=== PATIENT | male | born 1975 | race Caucasian/White ===

== ENCOUNTER 2017-09-08 10:46 | Emergency (ER) | payer OTHER ==
[~2017-09-08] VITALS: Ht 172.7 cm; Wt 74.8 kg
--- NOTE | 2017-09-08 10:55 | NUR ---
BIB RA FROM HEART TO HEART C/O LOSS OF APETITE. PATIENT REFUSING TO EAT, BLOOD SUGAR 60 AT FACILITY. IM GLUCAGON GIVEN ON ROUTE. BLOOD SUGAR 80 UPON ARRIVAL. A/OX 4. BREATHING EVEN AND UNLABORED. NO SOB. VITALS STABLE. SAFETY AND COMFORT MEASURES IN PLACE. AWAITING MD ORDERS.
[2017-09-08] MEDS ORDERED: ASCO500T9 PO (11:05)
[2017-09-08] MEDS ORDERED: HEPA10009 SQ (11:05)
[2017-09-08] MEDS ORDERED: AMLO5TAB2 PO (11:05)
[2017-09-08] MEDS ORDERED: MAGN400O6 PO (11:05)
[2017-09-08] MEDS ORDERED: DOCU-25 PO (11:05)
[2017-09-08] MEDS ORDERED: GLUC1KIT2 IM/SC (11:05)
[2017-09-08] MEDS ORDERED: ZINC220C8 PO (11:05)
[2017-09-08] MEDS ORDERED: ZOLP5TAB7 PO (11:05)
[2017-09-08] MEDS ORDERED: ACET-868 PO (11:05)
[2017-09-08] MEDS ORDERED: BACL10TA PO (11:05)
[2017-09-08] MEDS ORDERED: INSU100V27 SQ (11:05)
[2017-09-08] MEDS ORDERED: ALBU8.5H2 IH (11:05)
[2017-09-08] MEDS ORDERED: METO5TAB87 PO (11:05)
[2017-09-08] MEDS ORDERED: FAMO20TA8 PO (11:05)
[2017-09-08] MEDS ORDERED: TRAM50TA2 PO (11:05)
[2017-09-08] MEDS ORDERED: MEGE400O PO (11:05)
[2017-09-08] MEDS ORDERED: SENN8.6T6 PO (11:05)
[2017-09-08] MEDS ORDERED: IBUP-1955 PO (11:05)
--- NOTE | 2017-09-08 11:18 | NUR ---
BLOOD SUGAR 111
--- NOTE | 2017-09-08 11:25 | NUR ---
NEW IV STARTED ON RAC, 20 G. PATIENT MEDICATED PER MD ORDERS.
[2017-09-08] MEDS ORDERED: IV NS 0.9% 1,000 ML BAG IV ONE (11:30)
[2017-09-08 11:40] LABS: BASOPHILS # (AUTO) 0.1 /CMM (0.0-0.2); BASOPHILS % (AUTO) 0.9 % (0.0-2.0); EOSINOPHILS # (AUTO) 0.4 /CMM (0.0-0.7); EOSINOPHILS % (AUTO) 5.8 % (0.0-6.0); HEMATOCRIT 38 % (39-51); HEMOGLOBIN 12.3 g/dL (13.5-17.5); LYMPHOCYTES # (AUTO) 1.8 /CMM (0.8-4.8); LYMPHOCYTES % (AUTO) 23.8 % (20.0-44.0); MEAN CORPUSCULAR HEMOGLOBIN 26 PG (26.0-33.0); MEAN CORPUSCULAR HGB CONC 32 g/dl (31.0-36.0); MEAN CORPUSCULAR VOLUME 81 fL (80-96); MONOCYTES # (AUTO) 0.3 /CMM (0.1-1.30); MONOCYTES % (AUTO) 4.6 % (2.0-12.0); NEUTROPHILS # (AUTO) 4.9 /CMM (1.8-8.9); NEUTROPHILS % (AUTO) 64.9 % (43.0-81.0); PLATELET COUNT (AUTO) 332 /CMM (150-450); RDW COEFFICIENT OF VARIATION 19.6 (11.5-15.0); RED BLOOD CELL COUNT(AUTO) 4.68 MIL/uL (4.5-6.0); WHITE BLOOD COUNT (AUTO) 7.6 K/uL (4.3-11.0)
[2017-09-08 11:52] LABS: CALCIUM, SERUM 8.8 mg/dL (8.5-10.1); CREATININE 1.1 mg/dL (0.6-1.3); POTASSIUM 4.5 mmol/L (3.5-5.1)
[2017-09-08 11:59] LABS: ALBUMIN 2.8 g/dL (3.4-5.0); BILIRUBIN,TOTAL 0.2 mg/dL (0.2-1.0); TOTAL PROTEIN, SERUM 7.7 g/dL (6.4-8.2)
--- NOTE | 2017-09-08 12:16 | NUR ---
CALLED DR THAPA, ON THE PHONE WITH DR MAHARAJ.
--- NOTE | 2017-09-08 13:56 | NUR ---
YANN KOTHARI CM, . CLEAR TO DISCHARGE BACK TO HEART TO HEART PER DR. THAPA AND SANIYA ASCENCIO.
[2017-09-08 15:30] VITALS: BP 158/94
--- NOTE | 2017-09-08 15:40 | NUR ---
PATIENT DISCHARGED BACK TO HEART TO HEART VIA STRETCHER PER DR. THAPA AND SANIYA ASCENCIO.
== END 2017-09-08 15:29 ==
LOC: ER 10:48
DX: E86.0 Dehydration (principal); R62.7 Adult failure to thrive; I12.9 Hypertensive chronic kidney disease with stage 1 through stage 4 chronic kidney disease, or unspecified chronic kidney disease; E11.22 Type 2 diabetes mellitus with diabetic chronic kidney disease; N18.9 Chronic kidney disease, unspecified; Z79.4 Long term (current) use of insulin
CPT/HCPCS: 36415; 71010; 80048; 80076; 82962; 83690; 85025; 87081; 96360; 99285; A4606; J7030; Z7610